=== PATIENT | female | born 1945 | race Caucasian/White ===

== ENCOUNTER 2020-03-15 12:50 | Outpatient (CLI) | payer MEDICARE, OTHER, SELFPAY ==
[2020-03-15 13:31] LABS: Basophils Percent Auto 0.3 % (0.2-1.2); Eosinophils Absolute Auto 0.2 K/mm3 (0-0.3); Hemoglobin 12.9 g/dL (12.0-15.0); Immature Granulocyte Absolute 0.02 K/mm3 (0.00-0.031); Immature Granulocyte Percent A 0.3 % (0-0.5); Lymphocytes Absolute Auto 2.23 K/mm3 (0.9-3.2); Lymphocytes Percent Auto 33.2 % (18.3-44.2); Mean Corpuscular HGB Conc 31.5 g/dl (32-36); Mean Corpuscular Hemoglobin 27.8 pg (26-34); Mean Corpuscular Volume 88.4 fl (80-100); Mean Platelet Volume 9.6 fl (7.4-10.4); Monocytes Absolute Auto 0.6 K/mm3 (0.1-0.6); Monocytes Percent Auto 9.1 % (2.6-8.5); Neutrophils Absolute Auto 3.6 K/mm3 (1.3-6.7); Neutrophils Percent Auto 54.1 % (45.5-73.1); Platelet Count Result 221 k/mm3 (150-375); Red Blood Count 4.64 M/mm3 (4.2-5.4); White Blood Count 6.7 K/mm3 (4.5-10.0)
[2020-03-15 13:49] LABS: Alanine Aminotransferase 13 U/L (4-35); Albumin Level 4.3 g/dL (3.5-5.1); Alkaline Phosphatase 125 U/L (38-126); Aspartate Amino Transferase 16 U/L (14-36); Bilirubin,Total 0.3 mg/dL (0.2-1.3); Blood Urea Nitrogen 20 mg/dL (7-17); Calcium 9.6 mg/dL (8.4-10.2); Carbon Dioxide 27 mmol/L (22-30); Chloride 104 mmol/L (98-107); Estimated Glomerular Filt Rate > 60; Glucose 87 mg/dL (65-105); Potassium 4.3 mmol/L (3.4-5.0); Sodium 139 mmol/L (137-145)
== END 2020-03-15 12:51 | disposition home or self-care (01) ==
PROVIDERS: PCP Internal Medicine; Visit Provider Internal Medicine
DX: K57.20 Diverticulitis of large intestine with perforation and abscess without bleeding (principal); E46 Unspecified protein-calorie malnutrition
CPT/HCPCS: 36415; 80053; 85025

== ENCOUNTER 2020-11-17 09:42 | Outpatient (CLI) | payer MEDICARE, OTHER, SELFPAY ==
--- NOTE | ~2020-11-17 | CT_ITS ---
EXAMINATION: CT abdomen pelvis wo/w con EXAM DATE: 11/17/2020 10:40 INDICATION: R31.9 - Hematuria, unspecified . TECHNIQUE: Spiral CT of the abdomen and pelvis was performed without contrast. The patient was then injected with small bolus intravenous Omnipaque 350, followed by delay of approximately 10 minutes to allow collecting system to opacify. A post contrast scan abdomen and pelvis was performed during inj ection of remaining contrast. A total of 130 cc intravenous contrast was administered. The dose-pasquale th product (DLP) for this examination was 1333.04 mGy-cm. The exposure was tailored according to pat ient size (auto mA exposure control), and iterative reconstruction (ASIR) was used as additional dose reduction technique. Comparison is made to prior examination from 07/07/2017. FINDINGS: Uterus is retroverted with endometrium measuring about 2 cm, significantly thickened. Could be endometrial cancer or hyperplasia. There is no hydronephrosis or nephrolithiasis. The kidneys en evelyn symmetrically. There are no suspicious renal lesions. The calyces and opacified portions of u reters are unremarkable, without filling defects or focal suspicious strictures. The bladder is unre markable. Low-lying ureterovesicular junctions, may indicate some component of pelvic prolapse. The liver, spleen, adrenal glands and pancreas are unremarkable. Gallbladder is unremarkable. No bi liary obstruction. There is no retroperitoneal or pelvic lymphadenopathy. There is mild to moderat e scattered arteriosclerotic disease. The appendix is normal. There is moderate-sized gastroesophageal hiatal hernia. There is left lower quadrant colostomy, descending and sigmoid colonic resection. There is mild to moderate scattered ri ght hemicolonic diverticulosis. There is no adjacent inflammatory change to suggest diverticulitis. No free intraperitoneal gas. The heart is normal in size. There are no pericardial or pleural eff usions. The lung bases are unremarkable. There are no osteoblastic or osteolytic lesions identified . IMPRESSION: 1. Endometrial thickening, could indicate cancer or hyperplasia. Recommend pelvic sonogram or histol ogic correlation. 2. Low-lying bladder, may indicate some amount of pelvic prolapse. 3. Colostomy. Scattered colonic diverticulosis. 4. Moderate hiatal hernia. Reviewed, dictated and finalized at location A. CONCIERGE IMPRESSION: 1. Endometrial thickening, could indicate cancer or hyperplasia. Recommend pel rebekah sonogram or histologic correlation. 2. Low-lying bladder, may indicate some amount of pelvic prolapse. 3. Colostomy. Scattered colonic diverticulosis. 4. Moderate hiatal hernia.
[2020-11-17 10:22] LABS: Estimated Glomerular Filt Rate > 60
== END 2020-11-17 09:43 | disposition home or self-care (01) ==
PROVIDERS: PCP Family Medicine; Visit Provider Nurse Practitioner Family
DX: R31.9 Hematuria, unspecified (principal); Z87.442 Personal history of urinary calculi; K44.9 Diaphragmatic hernia without obstruction or gangrene; K57.30 Diverticulosis of large intestine without perforation or abscess without bleeding
CPT/HCPCS: 74178; Q9967

== ENCOUNTER 2020-12-15 13:32 | Outpatient (CLI) | payer MEDICARE, OTHER, SELFPAY ==
--- NOTE | ~2020-12-15 | DEXA_ITS ---
Bone Density Report Name: Alessandra Ray Age: 75 Sex: Female Ethnicity: White Date of : 1945 Indication: postmenopausal; parental hip fracture; height loss; cancer; Referring Provider: Mitra May Study: Bone densitometry was performed. Exam Date: December 15, 2020 Accession number: [id number] Bone Density: Region BMD T-score Z-score Classification AP Spine (L1-L4) 0.965 -0.7 1.7 Normal Femoral Neck (Left) 0.642 -1.9 0.3 Osteopenia Total Hip (Left) 0.808 -1.1 0.7 Osteopenia Total Hip Bilateral Avg 0.808 -1.1 0.7 Osteopenia Femoral Neck (Right) 0.621 -2.1 0.1 Osteopenia Total Hip (Right) 0.806 -1.1 0.7 Osteopenia World Health Organization criteria for BMD impression classify patients as: Normal (T-score at or above -1.0), Osteopenia (T-score between -1.0 and -2.5), or Osteoporosis (T-score at or below -2.5). 10-year Fracture Risk(1): Major Osteoporotic Fracture 24% Hip Fracture 14% Reported Risk Factors: [place] (), Neck BMD=0.621, BMI=31.9, parental fracture (1) FRAX(R) Version 3.08. Fracture probability calculated for an untreated patient. Fracture probability may be lower if the patient has received treatment. Clinical Information Provided by Patient: Parent has had a hip fracture Has used the following medications: Vitamin D Has the following medical conditions: Cancer Patient maximum height was 66 Menopause Age: 44 Does not regularly consume dairy products Drinks caffeinated beverages Onset of menses at age 12 Number of children 1 Impression: The patient has low bone mass, based on the Right Femoral Neck T-score. The patient has an estimated ten-year risk of hip fracture of 14% and an estimated ten-year risk of major fracture of 24%, based on the WHO FRAX algorithm. The patient has risk factors, including: parental hip fracture. Discussion: BONE DENSITY IS LOW AT ONE OR MORE SKELETAL SITES. THE PATIENT'S BMD AND CLINICAL RISK FACTORS CONTRIBUTE TO THIS PATIENT'S HIGH RISK OF FRACTURE. This patient's lowest T-score is low at one or more skeletal sites. It meets the World Health Organization's (WHO) criteria for ?low bone mass? (T-score between -1.0 and -2.5). The patient's 10-year risk of hip fracture and 10 year risk of a major osteoporotic fracture as calculated by FRAX exceeds the threshold where pharmacological therapy is recommended by the National Osteoporosis Foundation (NOF). However, all treatment decisions require clinical judgment and consideration of individual patient factors, including patient preferences, comorbidities, previous drug use, risk factors not captured in the FRAX model (e.g., frailty, falls, vitamin D deficiency, increased bone turnover, interval significant decline in bone density) and possible under or overestimation of fracture risk by FRAX. The p
== END 2020-12-15 13:33 | disposition home or self-care (01) ==
LOC: ANHIMG 13:34
PROVIDERS: PCP Family Medicine; Visit Provider Nurse Practitioner
DX: Z78.0 Asymptomatic menopausal state (principal); M85.89 Other specified disorders of bone density and structure, multiple sites
CPT/HCPCS: 77080

== ENCOUNTER 2020-12-25 09:00 | Outpatient (CLI) | payer MEDICARE, OTHER, SELFPAY ==
--- NOTE | ~2020-12-25 | US_ITS ---
EXAMINATION: US pelvic complete w TV DATE: 12/25/2020 09:29 INDICATION: Postmenopausal bleeding TECHNIQUE: Multiple transabdominal and endovaginal sonographic images of the pelvis were obtained. COMPARISON: None. FINDINGS: The uterus measures 6.0 x 3.5 x 4.6 cm. The endometrial complex is heterogeneous and measur es 2.4 cm. The right ovary measures 2.4 x 1.1 x 0.9 cm. The left ovary measures 2.4 x 1.1 x 1.2 cm. T here is normal vascular flow in the ovaries. There is no free fluid in the pelvis. IMPRESSION: 1. Endometrial thickening which may be due to hyperplasia, polyp, or malignancy. Endometrial sampling is recommended. Reviewed, dictated and finalized at location B. IMPRESSION: 1. Endometrial thickening which may be due to hyperplasia, polyp, or malignancy . Endometrial sampling is recommended.
== END 2020-12-25 09:01 | disposition home or self-care (01) ==
PROVIDERS: PCP Family Medicine; Visit Provider Nurse Practitioner Family
DX: N93.9 Abnormal uterine and vaginal bleeding, unspecified (principal)
CPT/HCPCS: 76830; 76856

== ENCOUNTER 2021-05-15 08:19 | Outpatient (CLI) | payer MEDICARE, OTHER, SELFPAY ==
--- NOTE | ~2021-05-15 | MR_ITS ---
EXAMINATION: MR pelvis wo/w con INDICATION: Unresectable uterine cancer TECHNIQUE: Coronal SSFSE ARC, Coronal, Axial, and Sagittal T2 FRFSE small gmxck-hv-bmlh, Coronal 2D F IESTA FatSat, Axial SSFSE BH ARC, Axial 3D DualEcho BH, Axial STIR, Axial DWI b=500, pre and dynamic postcontrast Axial LAVA ARC COMPARISON: CT, 11/17/2020; ultrasound, 12/25/2020 CONTRAST: Multihance, 15 cc FINDINGS: The endometrial canal is distended with fluid. There is an irregular 4.4 x 1.9 cm mass in t he left posterolateral endometrial canal. The mass invades posteriorly through the myometrium and tet hers and invades the rectum as it passes behind the uterus. An approximately 1.6 cm soft tissue mass protrudes into the upper rectum. Multiple smaller nodular masses are seen around the periphery of the endometrial canal. Although difficult to assess, there appears to be thickening of the posterior wal l of the vagina There is bilateral pelvic lymphadenopathy. A 3.0 x 1.9 cm lymph node is seen at the b ifurcation of the left internal and external iliac vessels. 1.5 x 1.2 cm pathologically enlarged righ t obturator lymph node. An approximately 2.0 x 1.9 cm right external iliac chain lymph node is noted. There is a left external iliac chain lymph node measuring up to 11 mm in short axis. A 7 mm right in ternal iliac chain lymph node is suspicious for metastatic disease. There is a small volume of locula beverly fluid in the pelvis. IMPRESSION: 1. Multiple uterine masses with distention of the endometrial canal, consistent with malignancy. 2. Tethering of invasion of the upper rectum as it passes behind the uterus. 3. Pelvic and retroperitoneal lymphadenopathy, consistent with metastatic disease. 4. Possible involvement of the posterior wall of the vagina. Reviewed, dictated and finalized at location A. IMPRESSION: 1. Multiple uterine masses with distention of the endometrial canal, consistent with malignancy. 2. Tethering of invasion of the upper rectum as it passes behind the uterus. 3. Pelvic and retroperitoneal lymphadenopathy, consistent with metastatic disea se. 4. Possible involvement of the posterior wall of the vagina.
[2021-05-15 09:35] LABS: Estimated Glomerular Filt Rate 48
== END 2021-05-15 08:20 | disposition home or self-care (01) ==
LOC: ANHIMG 08:25
PROVIDERS: PCP Family Medicine; Visit Provider Radiology Radiation Oncology
DX: C54.1 Malignant neoplasm of endometrium (principal)
CPT/HCPCS: 72197; 77290; 77334; A9577

== ENCOUNTER 2021-06-11 11:36 | Outpatient (CLI) | payer MEDICARE, OTHER, SELFPAY ==
--- NOTE | ~2021-06-11 | US_ITS ---
EXAMINATION: US venous doppler [facility] DATE: 06/11/2021 12:19 INDICATION: Left lower limb swelling TECHNIQUE: Grayscale ultrasound images without and with compression and Doppler ultrasound images of the bilateral lower extremity veins were obtained. COMPARISON: None. FINDINGS: The visualized portions of right common femoral vein, profunda (deep) femoral vein, femoral vein, pop liteal vein, posterior tibial veins, peroneal veins, gastrocnemius vein and greater saphenous vein ou tflow are patent. There is noncompressible occlusive appearing deep venous thrombosis throughout the visualized portion s of left common femoral vein, profunda femoral vein, femoral vein, popliteal vein, posterior tibial veins, peroneal veins, gastrocnemius vein and greater saphenous vein outflow. IMPRESSION: 1. Extensive occlusive deep venous thrombosis throughout the left lower limb from the posterior tibi al and peroneal veins at the calf proximally through the common femoral vein. 2. No deep venous thrombosis in the right lower limb. Reviewed, dictated and finalized at location A. IMPRESSION: 1. Extensive occlusive deep venous thrombosis throughout the left lower limb f rom the posterior tibial and peroneal veins at the calf proximally through the common femoral vein. 2. No deep venous thrombosis in the right lower limb.
== END 2021-06-11 11:37 | disposition home or self-care (01) ==
PROVIDERS: PCP Family Medicine; Visit Provider Radiology Radiation Oncology
DX: M79.89 Other specified soft tissue disorders (principal); I73.9 Peripheral vascular disease, unspecified
CPT/HCPCS: 93970

== ENCOUNTER 2021-06-11 14:43 | Emergency (ER) | payer MEDICARE, OTHER, SELFPAY ==
--- NOTE | ~2021-06-11 | CT_ITS ---
EXAMINATION: CTA chest PE protocol DATE: 06/11/2021 21:21 INDICATION: Shortness of breath TECHNIQUE: Computed tomography angiography (CTA) of the chest was performed with 100 mL Omnipaque-350 intravenous contrast timed to evaluate the pulmonary arteries. Coronal maximum intensity projection 3D-reconstructions were created by the technologist. The dose-length product (DLP) was 239.59 mGy-cm. Automated exposure control and iterative reconstruction technique were employed. COMPARISON: None. FINDINGS: The pulmonary arteries are well-opacified. There are acute emboli in the right main pulmona ry artery and proximal branches of the right upper lobe, right middle lobe, and right lower lobe pulm onary arteries. In addition, there are acute emboli in subsegmental branches of the left lower lobe. There is straightening of the interventricular septum. There are a few scattered small pulmonary nodu les which measure up to 3 mm. Dependent atelectasis is noted. The heart size is normal. There are no pathologically enlarged thoracic lymph nodes. Changes of right mastectomy are noted. There is a moder ate-sized hiatal hernia. There is moderate thoracic spondylosis. IMPRESSION: 1. Bilateral pulmonary emboli, right worse than left, with emboli in the right main pulmonary artery. Possible right ventricular strain. These findings were discussed with Dr. Allyn Bain MD in [facility] Emergency Department at 2141 hours on 06/11/2021. Reviewed, dictated and finalized at location A. IMPRESSION: 1. Bilateral pulmonary emboli, right worse than left, with emboli in the right main pulmonary artery. Possible right ventricular strain. These findings were d iscussed with Dr. Allyn Bain MD in the Emergency Department at 2141 hour s on 06/11/2021.
[2021-06-11 15:49] VITALS: BP 138/70; PULSE 81; RESP 14; TEMP 36.2; O2SAT 99
--- NOTE | 2021-06-11 19:49 | ED.EXTPRO ---
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 Patient developed left leg swelling 2 days ago . She also reports pain to her left leg mostly in her upper thigh. She reports having PE 7 years ago but she denies taking anticoagulation. She states she was on aspirin until she had her colon resection. She denies chest pain or shortness of breath, but she reports intermittent dizziness and heart palpitations. She reports intermittent vaginal bleeding due to her cancer. She last had bleeding 2 days ago and she reports it was mild. She denies any other bleeding issues currently. Related Data Home Medications Medication Instructions Recorded Confirmed calcium carbonate-vitamin D3 600 1 tablet PO DAILY 09/24/19 06/11/21 mg (1,500 mg)-800 unit tablet Allergies Allergy/AdvReac Type Severity Reaction Status Date / Time amlodipine Allergy Unknown Rash Verified 06/11/21 10:36 amoxicillin Allergy Unknown rash Verified 06/11/21 10:36 indapamide Allergy Unknown Rash Verified 06/11/21 10:36 olmesartan Allergy Unknown Rash Verified 06/11/21 10:36 Khigoes-Sok-Xoq Reductase Allergy Unknown rash and Verified 06/11/21 10:36 Inhibitor muscle pain AMOXICILLIN TRIHYDRATE Allergy Unknown Rash Uncoded 06/11/21 10:36 OLMESARTAN MEDOXOMIL Allergy Unknown Rash Uncoded 06/11/21 10:36 POTASSIUM CLAVULANATE Allergy Unknown Rash Uncoded 06/11/21 10:36 Review of Systems Review of Systems: All systems reviewed & are unremarkable except as noted in HPI and below PMFSH Past Medical History Medical History BMI 30.0-30.9,adult Colostomy present Encounter for annual wellness exam in Medicare patient Endometriosis Postmenopausal Surgical History Surgical History H/O breast surgery History of cancer surgery History of cataract surgery Hx of endoscopy Status post colectomy Family History Family History Mother Family history of diabetes mellitus in first degree relative Sibling Family history of malignant neoplasm of breast in first degree relative Father Family history of liver disease Other Diabetes mellitus Social History Social History Smoking status: Never smoker Alcohol intake: never Spiritual care concerns: No Exam Const: General: no acute distress and alert Orientation/consciousness: patient oriented x3 Eyes: EOM: EOMs intact bilaterally Chest: Chest palpation & inspection: normal inspection of the chest Resp: Effort & Inspection: normal respiratory effort and no retractions Auscultation: clear to auscultation bilaterally Cardio: Rate: regular rate Rhythm: regular rhythm Heart sounds: no murmurs GI: GI Palp: Yes Soft to palpation, No Tenderness to palpation present (GI) and No Guarding due to palpation present (GI) Auscultation: normal bowel sounds Skin: General skin exam: normal color Neuro: General: patient oriented x3, moves all extremities and CN's II-XI intact bilaterally Extrem: Other: left leg swelling from ankle to thigh. no pitting Psych: Mental Status: mental status grossly normal Affect: normal affect Course Reevaluation(s) Reevaluation #1: I discussed with patient and family that she was found to have bilateral pulmonary emboli so she will require admission. She request transfer to [place] Date: 06/11/21 Time: 22:00 Consultations Consultation #1: I spoke with Dr. Dobbins
[2021-06-11 20:14] VITALS: BP 150/89; PULSE 87; RESP 18; O2SAT 97
[2021-06-11] MEDS: HEPARIN SODIUM LOCK FLUSH 500 UNITS/5 ML VIAL (20:16)
[2021-06-11 20:39] LABS: Basophils Percent Auto 0.6 % (0.2-1.2); Eosinophils Absolute Auto 0.3 K/mm3 (0-0.3); Eosinophils Percent Auto 10.6 % (0-4.4); Hematocrit 28.7 % (37.0-47.0); Hemoglobin 8.9 g/dL (12.0-15.0); Immature Granulocyte Absolute 0.04 K/mm3 (0.00-0.031); Immature Granulocyte Percent A 1.2 % (0-0.5); Lymphocytes Absolute Auto 0.37 K/mm3 (0.9-3.2); Lymphocytes Percent Auto 11.5 % (18.3-44.2); Mean Corpuscular Hemoglobin 25.3 pg (26-34); Mean Corpuscular Volume 81.5 fl (80-100); Mean Platelet Volume 9.1 fl (7.4-10.4); Monocytes Absolute Auto 0.6 K/mm3 (0.1-0.6); Monocytes Percent Auto 19.3 % (2.6-8.5); Neutrophils Absolute Auto 1.8 K/mm3 (1.3-6.7); Neutrophils Percent Auto 56.8 % (45.5-73.1); Platelet Count Result 157 k/mm3 (150-375); Red Blood Count 3.52 M/mm3 (4.2-5.4); Red Cell Distribution Width 17.5 % (11.5-14.5); White Blood Count 3.2 K/mm3 (4.5-10.0)
[2021-06-11 20:49] LABS: Prothrombin Time 13.5 Seconds (11.1-14.7)
[2021-06-11 20:50] LABS: Alanine Aminotransferase 9 U/L (4-35); Alkaline Phosphatase 98 U/L (38-126); Anion Gap 11 mmol/L (8-16); Aspartate Amino Transferase 15 U/L (14-36); Bilirubin,Total 0.4 mg/dL (0.2-1.3); Blood Urea Nitrogen 17 mg/dL (7-17); Calcium 9.1 mg/dL (8.4-10.2); Carbon Dioxide 25 mmol/L (22-30); Chloride 101 mmol/L (98-107); Estimated CRCL calculation 51 ml/min; Estimated Glomerular Filt Rate > 60; Glucose 101 mg/dL (65-110); Partial Thromboplastin Time 33.5 SECONDS (22.3-36.8); Potassium 3.5 mmol/L (3.4-5.0); Sodium 137 mmol/L (137-145)
[2021-06-11 21:40] VITALS: BP 136/71; PULSE 78; RESP 18; O2SAT 98
[2021-06-11 22:04] LABS: NT Pro B Type Natriuretic Pept 212 pg/mL (5-100); Troponin I < 0.012 ng/mL (0.000-0.034)
[2021-06-11] MEDS: HEPARIN SODIUM 5,000 UNITS/ML VIAL 6000 UNITS IV PUSH (22:38)
[2021-06-11] MEDS: HEPARIN SOD/D5W 100 UNITS/ML 25,000 UNITS/250 ML BAG 11 UNITS IV CONT (22:38)
[2021-06-11 22:44] VITALS: BP 125/74; PULSE 93; RESP 18; O2SAT 96
[2021-06-12 02:54] VITALS: BP 116/69; PULSE 87; RESP 19; O2SAT 100
== END 2021-06-12 03:29 | disposition short-term general hospital (02) ==
PROVIDERS: Emergency Medicine; Emergency Provider General Practice; PCP Family Medicine
DX: I26.99 Other pulmonary embolism without acute cor pulmonale (principal); I82.492 Acute embolism and thrombosis of other specified deep vein of left lower extremity; Z86.711 Personal history of pulmonary embolism; C54.1 Malignant neoplasm of endometrium; Z79.899 Other long term (current) drug therapy; Z90.49 Acquired absence of other specified parts of digestive tract; Z93.3 Colostomy status; Z98.49 Cataract extraction status, unspecified eye
CPT/HCPCS: 36415; 71275; 77386; 80053; 83880; 84484; 85025; 85610; 85730; 93970; 96365; 99291; J1642; J1644; Q9967

== ENCOUNTER 2021-06-26 09:00 | Outpatient (RCR) | payer MEDICARE, OTHER, SELFPAY | END 2021-08-31 12:29 | disposition home or self-care (01) | LOC: ANHLAB 09:00 | PROVIDERS: PCP Family Medicine | DX: C54.1 Malignant neoplasm of endometrium (principal) | CPT/HCPCS: 36415; 80053; 83735; 85025 ==

== ENCOUNTER 2021-11-23 14:47 | Outpatient (CLI) | payer MEDICARE, SELFPAY ==
--- NOTE | ~2021-11-23 | US_ITS ---
EXAMINATION: US venous doppler [facility] EXAM DATE: 11/23/2021 15:26 INDICATION: follow up on DVT's TECHNIQUE: Multiple grayscale, color flow and Doppler images of the lower extremity deep venous syste ms bilaterally were obtained and reviewed. Comparison is made to prior examination from 06/11/2021. FINDINGS: RIGHT SIDE Common femoral: -------- Normal. Profunda femoral: ------- Normal. Femoral: Normal. Popliteal: Normal. Posterior tibial: --------- Normal. Peroneal: Normal. Gastrocnemius: Not visualized. Soleus: Not visualized. Greater saphenous: ----- Normal. Lesser saphenous: ------ Not visualized. LEFT SIDE Common femoral: --------Thrombosed. Profunda femoral: -------Thrombosed. Femoral: Nonocclusive thrombus. Popliteal: Nonocclusive thrombus. Posterior tibial: ---------Nonocclusive thrombus. Peroneal: Nonocclusive thrombus. Gastrocnemius: Normal. Soleus: Not visualized. Greater saphenous: ----- Normal. Lesser saphenous: ------ Not visualized. IMPRESSION: Persistent left lower extremity deep venous thrombosis, with some interval recanalization . Reviewed, dictated and finalized at location A. RONMENTAL COMPLIANCE SPECIALIST IMPRESSION: Persistent left lower extremity deep venous thrombosis, with some i nterval recanalization.
== END 2021-11-23 14:48 | disposition home or self-care (01) ==
PROVIDERS: PCP Family Medicine; Visit Provider Nurse Practitioner Family
DX: I82.402 Acute embolism and thrombosis of unspecified deep veins of left lower extremity (principal)
CPT/HCPCS: 93970

== ENCOUNTER 2021-12-18 17:16 | Emergency (ER) | payer MEDICARE, SELFPAY ==
--- NOTE | ~2021-12-18 | XR_ITS ---
EXAMINATION: XR chest 1V Exam Date/Time: 12/18/2021 20:45 CDT CLINICAL HISTORY: weakness, fall today, liver/cervical cancer Comparison: 09/10/2012. CTA chest 06/11/2021. RESULT: Lines, tubes, and devices: Left chest implanted port terminating at the cavoatrial junction. Right a xillary surgical clips. Absent right breast shadow. Lungs and pleura: Clear. Cardiomediastinal silhouette: Stable cardiomediastinal silhouette. Other: No acute osseous or upper abdominal finding. Calcific density projects over the right upper q uadrant. IMPRESSION: No acute cardiopulmonary process. Reviewed, dictated and finalized at location K.
--- NOTE | ~2021-12-18 | CT_ITS ---
EXAMINATION: CT brain wo con DATE: 12/18/2021 20:46 INDICATION: Fall, weakness. TECHNIQUE: Computed tomography (CT) of the head was performed without intravenous contrast. The mA wa s adjusted according to patient size. Iterative reconstruction technique was employed. The dose-lengt h product was 605.33 mGy-cm. COMPARISON: 09/10/2012. FINDINGS: No acute intracranial hemorrhage or extra-axial fluid collection. No hydrocephalus, mass, or herniation. No acute ischemic infarct. Unremarkable dural venous sinus attenuation. No acute osseous abnormality. The aerated spaces are clear. Hyperostosis. Atherosclerotic intracranial arterial calcification. IMPRESSION: No acute intracranial process. Reviewed, dictated and finalized at location K.
--- NOTE | ~2021-12-18 | CT_ITS ---
EXAMINATION: CT lumbar spine wo con DATE: 12/18/2021 20:47 INDICATION: Back pain, history of metastatic cancer. TECHNIQUE: Computed tomography (CT) of the lumbar spine was performed without intravenous contrast. A utomated exposure control and iterative reconstruction technique were employed. The dose-length produ ct was 524.24 mGy-cm. COMPARISON: CT abdomen and pelvis 11/17/2020. FINDINGS: Limitations: None Bones: No fracture or traumatic malalignment. Multilevel degenerative disc disease, severe at L2-3 an d L5-S1. Minimal, grade 1 retrolisthesis of L2 on L3. No severe central canal stenosis. Multilevel dario mbar neural foraminal narrowing, severe on the right at L2-3 and on the left at L5-S1. No pars defect . No lytic or blastic lesions. Soft Tissues: 3 mm left upper pole calculus, otherwise the soft tissues appear within normal limits. No evidence of mass or fluid collection. IMPRESSION: No acute fracture, pathologic fracture, or traumatic malalignment detected in the lumbar spine. Reviewed, dictated and finalized at location K. IMPRESSION: No acute fracture, pathologic fracture, or traumatic malalignment detected in t he lumbar spine.
--- NOTE | ~2021-12-18 | XR_ITS ---
EXAM: XR hip RT 2V w AP pelvis HISTORY: Fall and Pain COMPARISON: None available FINDINGS: Mild degenerative change in the lumbar spine and bilateral hips. Osteopenia. No fracture o r dislocation. IMPRESSION: No acute osseous finding detected in the pelvis or right hip. Reviewed, dictated and finalized at location K.
--- NOTE | ~2021-12-18 | XR_ITS ---
EXAM: XR knee RT 3V HISTORY: FALL COMPARISON: None available FINDINGS: Severe osteopenia. General varus alignment, with some degree of lateral subluxation. Sever e medial joint space narrowing. Tricompartmental osteophytosis. No large joint effusion. No fracture or dislocation. IMPRESSION: No acute osseous finding detected in the right knee. Reviewed, dictated and finalized at location K.
[2021-12-18 17:15] VITALS: BP 169/70; PULSE 94; RESP 16; TEMP 36.6; O2SAT 98
--- NOTE | 2021-12-18 17:40 | ED.FALL ---
HPI - Fall General Chief Complaint: Fall <Colin Grant DO - Last Filed: 12/18/21 19:09> Stated Complaint: fall/hip pain <Colin Grant DO - Last Filed: 12/18/21 19:09> Time Seen by Provider: 12/18/21 17:34 <Colin Grant DO - Last Filed: 12/18/21 19:09> Source: patient and family <Colin Grant DO - Last Filed: 12/18/21 19:09> Limitations: no limitations <Colin Grant DO - Last Filed: 12/18/21 19:09> History of Present Illness HPI Narrative: 76-year-old female presents to the emergency room after she took a fall at home. Patient was trying to go down 2 steps from her kitchen out to the garage to go get her mail. She uses a walker. She states she put her feet on the top stairs and did a felt like jelly and then she collapsed sitting down on her buttock and then sliding down to the bottom of the steps. She not hit her head and had no loss of consciousness. She states she just feeling extremely weak. She complains of pain to the right lateral hip but she is moving her leg without any significant difficulty. Patient is currently being treated for ovarian cancer. She is undergone radiation and chemo. And now they have noticed that she has got some spots on her liver continue with treatment. She appears to be very pale to me. She states she been feeling more weak lately. Patient also has a colostomy which is secondary to a surgical procedure with and remove part of her colon 2 years ago. <Colin Grant DO - Last Filed: 12/18/21 19:09> Related Data Home Medications: Home Medications Medication Instructions Recorded Confirmed calcium carbonate 600 mg-vitamin 1 tablet PO DAILY 09/24/19 11/19/21 D3 20 mcg (800 unit) tablet diphenoxylate-atropine [Lomotil] 1 tablet PO TID PRN 07/03/21 11/19/21 magnesium oxide 400 mg PO DAILY 07/03/21 11/19/21 potassium chloride 40 meq PO DAILY 07/03/21 11/19/21 rivaroxaban [Xarelto] 20 mg PO DAILY 07/04/21 11/19/21 <Colin Grant DO - Last Filed: 12/18/21 19:09> Allergies/Adverse Reactions: Allergies Allergy/AdvReac Type Severity Reaction Status Date / Time amlodipine Allergy Unknown Rash Verified 12/18/21 18:36 amoxicillin Allergy Unknown rash Verified 12/18/21 18:36 indapamide Allergy Unknown Rash Verified 12/18/21 18:36 olmesartan Allergy Unknown Rash Verified 12/18/21 18:36 Gfontdo-SEJ-GiU Reductase Allergy Unknown rash and Verified 12/18/21 18:36 Inhibitor muscle pain [Mjpracz-Tea-Rwd Reductase Inhibitor] AMOXICILLIN TRIHYDRATE Allergy Unknown Rash Uncoded 12/18/21 18:36 OLMESARTAN MEDOXOMIL Allergy Unknown Rash Uncoded 12/18/21 18:36 POTASSIUM CLAVULANATE Allergy Unknown Rash Uncoded 12/18/21 18:36 <Colin Grant, DO - Last Filed: 12/18/21 19:09> Review of Systems Review of Systems: CONSTITUTIONAL: Denies fever, chills, or sweats. EYES: Denies visual changes, redness, or discharge. ENT: Denies rhinorrhea, congestion, sore throat, or otalgia. CARDIOVASCULAR: Denies chest pain, palpitations, or edema. RESPIRATORY: Denies cough or dyspnea. GASTROINTESTINAL: Denies abdominal pain, nausea, vomiting, or diarrhea. GENITOURINARY: Denies dysuria or hematuria. SKIN: Denies rash or itching. MUSCULOSKELETAL: Complaining of pain to the right hip NEUROLOGIC: Denies headache, numbness, or weakness. PSYCHIATRIC: Denies anxiety or depression. <Colin Grant DO - Last Filed: 12/18/21 19:09> [facility] Past Medical History Medical History: Medical History BMI 30.0-30.9,adult BMI between 19-24,adult Colostomy present Encounter for annual wellness exam in Medicare patient Endometriosis Postmenopausal <Colin Grant DO - Last Filed: 12/18/21 19:09> Surgical History Surgical History: Surgical History H/O breast surgery History of cancer surgery History of cataract surgery Hx o
[2021-12-18 18:36] VITALS: PULSE 93; RESP 19; O2SAT 98
[2021-12-18 19:16] LABS: Anion Gap 10 mmol/L (8-16); Blood Urea Nitrogen 15 mg/dL (7-17); Carbon Dioxide 22 mmol/L (22-30); Chloride 101 mmol/L (98-107); Estimated CRCL calculation 40 ml/min; Estimated Glomerular Filt Rate > 60; Glucose 118 mg/dL (65-110); Sodium 133 mmol/L (137-145)
[2021-12-18 19:46] VITALS: BP 131/75; PULSE 86; RESP 18; O2SAT 98
[2021-12-18 20:26] LABS: Basophils Percent Auto 0.1 % (0.2-1.2); Eosinophils Percent Auto 0.3 % (0-4.4); Hematocrit 29.7 % (37.0-47.0); Hemoglobin 8.9 g/dL (12.0-15.0); Immature Granulocyte Absolute 0.03 K/mm3 (0.00-0.031); Immature Granulocyte Percent A 0.3 % (0-0.5); Lymphocytes Absolute Auto 0.64 K/mm3 (0.9-3.2); Lymphocytes Percent Auto 7.4 % (18.3-44.2); Mean Corpuscular Hemoglobin 24.3 pg (26-34); Mean Corpuscular Volume 81.1 fl (80-100); Monocytes Absolute Auto 0.9 K/mm3 (0.1-0.6); Monocytes Percent Auto 10.5 % (2.6-8.5); Neutrophils Percent Auto 81.4 % (45.5-73.1); Platelet Count Result 287 k/mm3 (150-375); Red Blood Count 3.66 M/mm3 (4.2-5.4); Red Cell Distribution Width 15.9 % (11.5-14.5); White Blood Count 8.6 K/mm3 (4.5-10.0)
[2021-12-18 21:55] LABS: Alanine Aminotransferase 7 U/L (4-35); Albumin Level 3.3 g/dL (3.5-5.1); Alkaline Phosphatase 138 U/L (38-126); Aspartate Amino Transferase 16 U/L (14-36); Bilirubin,Total 0.6 mg/dL (0.2-1.3)
[2021-12-18 21:59] LABS: Add Urine Microscopic? YES; Appearance Urine Clear (Clear); Bilirubin Urine Negative (Negative); Blood Urine 1+ (Negative); Color Urine Yellow (Yellow); Glucose Urine UA Negative (Negative); Ketones Urine Negative (Negative); Leukocyte Esterase Ur Trace LEU/UL (Negative); Mucus Urine Rare /lpf; Nitrate Urine Negative (Negative); Protein Urine Negative (Negative); Specific Grav Ur 1.011 (1.001-1.035); Squamous Epithelial Cell Urine Rare /hpf (Few); Urobilinogen Urine Negative mg/dL (<2.0); WBC Urine 16-20 /hpf
[2021-12-18 22:03] LABS: INR 2.9; Prothrombin Time 29.7 Seconds (11.1-14.7)
[2021-12-18 22:04] LABS: Partial Thromboplastin Time 56.9 SECONDS (22.3-36.8)
--- NOTE | 2021-12-18 22:46 | PC.NURSE ---
Provided socks for patient. Assisted patient out of bed. Patient ambulated with walker. Steady gait noted. Patient tolerated well. GUIDO Bain made aware.
[2021-12-18 22:49] VITALS: BP 116/69; PULSE 80; RESP 20; O2SAT 99
[2021-12-18] MEDS: HEPARIN SODIUM LOCK FLUSH 500 UNITS/5 ML VIAL (23:18)
[2021-12-18 23:20] VITALS: BP 112/68; PULSE 61; RESP 16; O2SAT 99
== END 2021-12-18 23:22 | disposition home or self-care (01) ==
PROVIDERS: Emergency Medicine; Emergency Provider General Practice; PCP Family Medicine
DX: M25.551 Pain in right hip (principal); R53.1 Weakness; D64.9 Anemia, unspecified; N39.0 Urinary tract infection, site not specified; C56.9 Malignant neoplasm of unspecified ovary; Z92.21 Personal history of antineoplastic chemotherapy; Z92.3 Personal history of irradiation; Z93.3 Colostomy status; Z79.899 Other long term (current) drug therapy; Z88.0 Allergy status to penicillin; Z88.8 Allergy status to other drugs, medicaments and biological substances
CPT/HCPCS: 36415; 70450; 71045; 72131; 73502; 73562; 80048; 80076; 81001; 85025; 85610; 85730; 87086; 99284; J1642